=== PATIENT | male | born 1970 | race African-American/Black ===

== ENCOUNTER 2017-08-31 21:40 | Inpatient (IN) ==
[2017-09-01] MEDS ORDERED: MORPHINE 2 MG/1 ML SYRINGE IV STA (02:03)
[2017-09-01] MEDS ORDERED: ONDANSETRON 4 MG/2 ML VIAL IV STA (02:03)
[2017-09-01 02:34] LABS: Basophils % 0.2 % (0.0-0.8); Eosinophils # 0.1 10*3/uL (0.0-0.87); Eosinophils % 0.7 % (0.00-10.9); Hematocrit 35.5 VOL% (42.0-52.0); Hemoglobin 11.8 GM/DL (14.0-18.0); Immature Granulocytes % 0.2 %; Immature Granulocytes Absolute 0.03 #; Lymphocytes # 1.7 10*3/uL (1.4-4.0); Lymphocytes % 13.3 % (21.2-54.2); Mean Corpuscular HGB Conc 33.2 GM/DL (32-36); Mean Corpuscular Hemoglobin 31 PG (27-34); Mean Corpuscular Volume 92.7 FL (87-102); Mean Platelet Volume 10.1 FL (9.6-12.0); Monocytes # 0.7 10*3/uL (0.11-0.8); Monocytes % 5.3 % (1.7-12.7); Neutrophils # 9.9 10*3/uL (1.4-7.4); Neutrophils % 80.3 % (38.7-73.9); Platelet Count 192 T/CUMM (130-400); Red Blood Count 3.83 MC/CUMM (3.8-5.5); Red Cell Distribution Width 13.2 % (9.3-17.3); White Blood Count 12.4 T/CUMM (4-12)
[2017-09-01 02:55] LABS: Calcium 8.7 MG/DL (8.5-10.1); Osmolality,Calculated 282.4 MOS/KG (273-304); Potassium 3.9 MMOL/L (3.5-5.1)
[2017-09-01] MEDS ORDERED: ONDANSETRON 4 MG/2 ML VIAL ONE ×2 (02:55→10:15)
[2017-09-01] MEDS ORDERED: MORPHINE 2 MG/1 ML SYRINGE ONE (02:56)
[2017-09-01] MEDS ORDERED: HYDROmorphone 2 MG/1 ML VIAL IV PRN (03:09)
[2017-09-01] MEDS ORDERED: ACETAMINOPHEN 325 MG TABLET PO PRN (03:09)
[2017-09-01] MEDS ORDERED: ONDANSETRON 4 MG/2 ML VIAL IV PRN (03:09)
[2017-09-01] MEDS: cefOXitin 2,000 MG in SYRINGE 1 EACH IV SCH ×4 (05:52→23:34)
[2017-09-01] MEDS ORDERED: cefOXitin 2,000 MG in SYRINGE 1 EACH IV ONE (07:16)
[2017-09-01] MEDS ORDERED: LIDOCAINE 1%/EPI INJ 20 ML VIAL ONE (08:19)
[2017-09-01] MEDS: SODIUM CHLORIDE 0.9% 250 ML IV SCH ×3 (08:50→23:34)
[2017-09-01] MEDS ORDERED: TISSUE ADHESIVE 1 EACH APPLICATOR TOP ONE (09:34)
[2017-09-01] MEDS ORDERED: PROPOFOL 200 MG/20 ML VIAL IV ONE (10:15)
[2017-09-01] MEDS ORDERED: MIDAZOLAM 2 MG/2 ML VIAL ONE (10:15)
[2017-09-01] MEDS ORDERED: fentaNYL 100 MCG/2 ML VIAL ONE (10:15)
[2017-09-01] MEDS ORDERED: SEVOFLURANE 1 UNIT/15 MINUTE INH ONE (10:15)
[2017-09-01] MEDS ORDERED: SODIUM CHLORIDE 0.9% 250 ML IV ONE (10:16)
[2017-09-01] MEDS ORDERED: NEOSTIGMINE 10 MG/10 ML VIAL ONE (10:16)
[2017-09-01] MEDS ORDERED: ROCURONIUM 100 MG/10 ML VIAL IV ONE (10:16)
[2017-09-01] MEDS ORDERED: GLYCOPYRROLATE 0.4 MG/2 ML VIAL ONE (10:16)
[2017-09-01] MEDS ORDERED: CALCIUM ACETATE 667 MG CAPSULE PO SCH (11:30)
[2017-09-01] MEDS: PANTOPRAZOLE 40 MG TABLET PO SCH (13:02)
[2017-09-01] MEDS: CALCIUM ACETATE 667 MG CAPSULE PO SCH (16:15)
[2017-09-01] MEDS ORDERED: CINACALCET 30 MG TABLET PO SCH (21:00)
[2017-09-02] MEDS: cefOXitin 2,000 MG in SYRINGE 1 EACH IV SCH (04:48)
[2017-09-02 07:36] LABS: Basophils % 0.3 % (0.0-0.8); Eosinophils # 0.3 10*3/uL (0.0-0.87); Hematocrit 33.9 VOL% (42.0-52.0); Hemoglobin 11.1 GM/DL (14.0-18.0); Immature Granulocytes % 0.4 %; Immature Granulocytes Absolute 0.04 #; Lymphocytes # 1.9 10*3/uL (1.4-4.0); Mean Corpuscular HGB Conc 32.7 GM/DL (32-36); Mean Corpuscular Hemoglobin 31 PG (27-34); Mean Corpuscular Volume 93.6 FL (87-102); Monocytes # 0.8 10*3/uL (0.11-0.8); Monocytes % 6.7 % (1.7-12.7); NRBC # 0.02 10*3/uL; Neutrophils # 8.2 10*3/uL (1.4-7.4); Neutrophils % 72.6 % (38.7-73.9); Platelet Count 178 T/CUMM (130-400); Red Blood Count 3.62 MC/CUMM (3.8-5.5); Red Cell Distribution Width 13.3 % (9.3-17.3); White Blood Count 11.3 T/CUMM (4-12)
[2017-09-02] MEDS ORDERED: AMOXICILLIN/CLAV 500 MG TABLET PO SCH (09:00)
[2017-09-02] MEDS ORDERED: amLODIPine 5 MG TABLET PO SCH (09:00)
[2017-09-02] MEDS ORDERED: CETIRIZINE 10 MG TABLET PO SCH (09:00)
[2017-09-02] MEDS ORDERED: ALLOPURINOL 100 MG TABLET PO SCH (09:00)
[2017-09-02] MEDS ORDERED: LIDOCAINE/PRILOCAINE CREAM 5 GM TUBE TOP SCH (09:00)
[2017-09-02] MEDS: PANTOPRAZOLE 40 MG TABLET PO SCH (09:40)
[2017-09-02] MEDS: SODIUM CHLORIDE 0.9% 250 ML IV SCH (09:59)
[2017-09-02] MEDS ORDERED: HEPARIN 10,000 UNIT/10 ML VIAL IV SCH (15:00)
[2017-09-02 17:42] VITALS: BP 118/73
[2017-09-02] MEDS: CALCIUM ACETATE 667 MG CAPSULE PO SCH (17:42)
== END 2017-09-02 18:15 | disposition home or self-care (01) | DRG 341 ==
LOC: N.ED 21:40 → N.EDINP 09-01 03:09 → N.3E 09-01 04:11
PROVIDERS: ADMIT Surgery; ATTEND Surgery

== ENCOUNTER 2019-03-29 16:35 | Observation (INO) ==
[2019-03-29] MEDS ORDERED: methylPREDNISolone SOD SUC 125 MG/2 ML VIAL IV STA (16:37)
[2019-03-29] MEDS ORDERED: LEVOFLOXACIN INJ 750 MG in PREMIX 1 EACH IV STA (16:43)
[2019-03-29] MEDS ORDERED: ALBUTEROL 2.5 MG/3 ML NEB RESP TX SCH (17:00)
[2019-03-29 17:06] LABS: Basophils % 0.2 % (0.0-0.8); Eosinophils % 0.3 % (0.00-10.9); Hematocrit 40.1 VOL% (42.0-52.0); Hemoglobin 12.1 GM/DL (14.0-18.0); Immature Granulocytes % 0.5 %; Immature Granulocytes Absolute 0.07 #; Lymphocytes # 1.2 10*3/uL (1.4-4.0); Lymphocytes % 9.4 % (21.2-54.2); Mean Corpuscular HGB Conc 30.2 GM/DL (32-36); Mean Corpuscular Volume 93.7 FL (87-102); Monocytes % 3.8 % (1.7-12.7); Neutrophils % 85.8 % (38.7-73.9); Platelet Count 234 T/CUMM (130-400); Red Blood Count 4.28 MC/CUMM (3.8-5.5); Red Cell Distribution Width 14.1 % (9.3-17.3)
[2019-03-29 17:14] LABS: Amorphous Crystals,Urine Occasional /HPF (Few); Apearance,Urine Slightly Hazy (Clear); Bilirubin,Urine Negative (Negative); Blood, Urine Negative (Negative); Glucose,Urine (UA) Negative (Negative); Ketones,Urine Negative (Negative); Mucus,Urine Occasional /LPF (Occasional); Nitrite,Urine Negative (Negative); Protein,Urine Negative; RBC,Urine 2 /HPF (0-4); Urine Color Yellow (Yellow); Urine Specific Gravity 1.018 (1.001-1.035); Urine Urobilinogen < 2.0 EU/DL (0.2-1.0); WBC,Urine <1 /HPF (0-6)
[2019-03-29 17:16] LABS: PT Patient Result 10.7 SECS (9.6-12.2); Partial Thromboplastin Time 21.2 SECS (20.8-36.0)
[2019-03-29 17:21] LABS: Barbiturates Screen,Urine Negative (Negative); Benzodiazepines Screen,Urine Negative (Negative); Cannabinoid Screen,Urine Negative (Negative); Opiate Screen,Urine Negative (Negative); Phencyclidine Screen,Urine Negative (Negative)
[2019-03-29] MEDS ORDERED: LORazepam 2 MG/1 ML VIAL IV PRN (17:41)
[2019-03-29] MEDS ORDERED: MORPHINE 4 MG/1 ML VIAL IV PRN (17:43)
[2019-03-29 18:32] LABS: Barbiturates Screen,Urine Negative (Negative); Benzodiazepines Screen,Urine Negative (Negative); Cannabinoid Screen,Urine Negative (Negative); Opiate Screen,Urine Negative (Negative); Phencyclidine Screen,Urine Negative (Negative)
[2019-03-29] MEDS ORDERED: fentaNYL 25 MCG/HR PATCH TRANSDERM SCH (19:00)
[2019-03-30 09:11] VITALS: BP 127/83
== END 2019-03-30 20:25 | disposition expired ==
LOC: N.ED 16:35 → N.EDINP 17:13 → SUATTDRO 17:13 → INTOOBSV 17:13 → N.4E 18:40
PROVIDERS: ADMIT Internal Medicine